=== PATIENT | female | born 1990 | race Caucasian/White ===

== ENCOUNTER → 2016-10-05 | Outpatient (CLI) | payer BC ==
--- NOTE | 2016-10-05 17:04 | US ---
EXAMINATION: Renal ultrasound HISTORY: Bicornuate uterus COMPARISON: None TECHNIQUE: Grayscale and color Doppler images obtained of the kidneys and bladder. FINDINGS: The right kidney measures 9.2 cm, and the left kidney measures 10.3 cm [id number] withou t evidence of hydronephrosis. The renal cortical echotexture is normal. Normal color Doppler flow is noted bilaterally. No renal masses or perinephric fluid collections. Urinary bladder appears normal . IMPRESSION: Unremarkable renal ultrasound.
== END ==
LOC: MW.US 14:22
PROVIDERS: ATTEND Obstetrics & Gynecology
DX: Q51.3 Bicornate uterus (principal)
CPT/HCPCS: 76770; 76770-26

== ENCOUNTER 2017-04-11 18:38 | Inpatient (IN) | payer BC ==
[2017-04-11] MEDS ORDERED: Sodium Chloride 0.9% 2.5 ML Syringe FLUSH PRN (21:16)
[2017-04-11] MEDS ORDERED: Sodium Chloride 0.9% 10 ML Syringe FLUSH PRN (21:16)
[2017-04-11] MEDS ORDERED: Carboprost Tromethamine 250 MCG/1 ML Amp IM PRN (21:16)
[2017-04-11] MEDS ORDERED: Misoprostol 200 MCG Tab PO PRN (21:16)
[2017-04-11] MEDS ORDERED: Nalbuphine 10 MG/1 ML Vial IVPUSH PRN (21:16)
[2017-04-11] MEDS ORDERED: Methylergonovine 0.2 MG/1 ML Amp IM PRN (21:16)
[2017-04-11] MEDS ORDERED: Water For Irrigation,Sterile 1,000 ML Container IRR PRN (21:16)
[2017-04-11] MEDS ORDERED: Lidocaine 1% 50 ML MDV INJECT PRN (21:16)
[2017-04-11] MEDS ORDERED: Butorphanol 1 MG/ML SDV IVPUSH PRN (21:16)
[2017-04-11] MEDS ORDERED: Oxytocin/0.9 % Sodium Chloride 30 UNIT/500 ML BAG IV ONE (21:17)
[2017-04-11] MEDS ORDERED: Lactated Ringers 1,000 ML IV SCH (21:30)
[2017-04-11] MEDS ORDERED: Simethicone 80 MG Tab.Chew PO PRN (22:50)
[2017-04-11] MEDS ORDERED: Lanolin 100% Cream 7 GM Tube TOP PRN (22:50)
[2017-04-11] MEDS ORDERED: Ibuprofen 800 MG Tab PO PRN (22:50)
[2017-04-11] MEDS ORDERED: oxyCODONE 5 MG Tab PO PRN (22:50)
[2017-04-11] MEDS ORDERED: Bisacodyl 10 MG Supp RECTAL PRN (22:50)
[2017-04-11] MEDS ORDERED: Docusate Sodium 100 MG Cap PO PRN (22:50)
[2017-04-11] MEDS ORDERED: Ibuprofen 400 MG Tab PO PRN (22:50)
[2017-04-11] MEDS ORDERED: Benzocaine/Menthol 20%-0.5% Spray 78 GM Cannister TOP PRN (22:50)
[2017-04-11] MEDS ORDERED: Acetaminophen 500 MG Tab PO PRN ×2 (22:50)
[2017-04-11] MEDS ORDERED: Witch Hazel Medicated Pads 40/Jar TOP PRN (22:50)
--- NOTE | 2017-04-12 01:28 | OR ---
SURGEON: Courtney Saunders M.D. DATE OF PROCEDURE: 04/11/2017 PREOPERATIVE DIAGNOSES: 1. A 40 and 1-week intrauterine . 2. Active labor. POSTOPERATIVE DIAGNOSES: 1. A 40 and 1-week intrauterine . 2. Active labor. PROCEDURE: 1. Spontaneous vaginal delivery. 2. Second-degree midline laceration repair. ESTIMATED BLOOD LOSS: 350 mL. ANESTHESIA: Local. COMPLICATIONS: None. FINDINGS: Viable male. score 9 at 1 minute, 9 at 5 minutes. Weight is pending. Spontaneous delivery, intact placenta, 3-vessel cord. DISPOSITION: Infant to nursery, mom in LDRP, stable. PROCEDURE IN DETAIL: Carly is a 26-year-old, G1, P0, at 40 and 2 weeks gestation. She presents this evening with regular contractions. With observation, she changed her cervix from 4 cm dilatation to 8 cm dilatation. Therefore, she was admitted and routine labs were drawn. Shortly thereafter, she had spontaneous rupture of membranes. Clear fluid was noted. She was group B beta strep negative. She quickly progressed to complete thereafter. I was called for delivery. Upon my arrival, the patient was having increasing urge to push. On examination, she was complete, 100% effaced, +2 station. She was placed in modified dorsal lithotomy position and was prepped and draped in the usual sterile manner. heart tones remained in the 110s-120s. She began pushing efforts, pushed adequately, and was able to deliver infant's head atraumatically spontaneously, followed by anterior shoulder, posterior shoulder, and remainder of the body without difficulty. The infant's oropharynx and nares were bulb suctioned and cord was clamped x2 and cut. was handed off to his mother with attending nursing staff at her side. Cord arterial, cord venous, cord blood sampling was obtained. Light suprapubic pressure was applied while the placenta was delivered spontaneously intact. Vigorous fundal uterine massage was then applied while 30 units of Pitocin was delivered in 500 mL of IV fluid. Upon inspection of the cervix, vaginal sidewalls, and perineum, there was a second- degree midline laceration noted. This region was prepped with approximately 10 mL of 1% lidocaine and repaired with 3-0 Vicryl in the usual fashion. The patient tolerated this repair well. Uterus remained firm. Hemostasis remained evident. Sponge count and needle count were correct. The patient remained in LDRP, in nursery. MOISES / RAFA /[id number]
--- NOTE | 2017-04-12 08:52 | PCM.PNPP ---
<Marisel Jang - Last Filed: 04/12/17 08:51> - General Info Date of Service: 04/12/17 Functional Status: Reports: Pain Controlled, Tolerating Diet, Ambulating, Urinating - Review of Systems General: Denies: Fever, Weakness, Fatigue Pulmonary: Denies: Shortness of Breath, Pleuritic Chest Pain, Cough Cardiovascular: Denies: Chest Pain, Palpitations, Dyspnea on Exertion Gastrointestinal: Denies: Abdominal Pain, Constipation Genitourinary: Denies: Dysuria Psychiatric: Reports: No Symptoms - General Info Date of Service: 04/12/17 - Patient Data Vital Signs - Most Recent: Last Vital Signs Temp 36.6 C 04/12/17 03:00 Pulse 84 04/12/17 03:00 Resp 16 04/12/17 03:00 BP 112/75 04/12/17 03:00 Pulse Ox Weight - Most Recent: 87.543 kg Lab Results - Last 24 Hours: Laboratory Results - last 24 hr 04/11/17 04/11/17 04/12/17 Range/Units 21:29 21:29 05:35 WBC 20.80 H (4.0-11.0) K/uL RBC 3.83 L (4.30-5.90) M/uL Hgb 11.2 L 10.8 L (12.0-16.0) g/dL Hct 32.4 L 32.4 L (36.0-46.0) % MCV 84.6 (80.0-98.0) fL MCH 29.2 (27.0-32.0) pg MCHC 34.6 (31.0-37.0) g/dL RDW Std Deviation 39.9 (28.0-62.0) fl RDW Coeff of Cici 13 (11.0-15.0) % Plt Count 246 (150-400) K/uL MPV 12.20 H (7.40-12.00) fL Nucleated RBC % 0.0 /100WBC Nucleated RBCs # 0 K/uL Blood Type A POSITIVE Antibody Screen NEGATIVE Med Orders - Current: Current Medications Acetaminophen (Tylenol Extra Strength) 500 mg PO Q4H PRN PRN Reason: Pain Acetaminophen (Tylenol Extra Strength) 1,000 mg PO Q4H PRN PRN Reason: Pain Benzocaine/Menthol (Dermoplast Pain Relief 20%-0.5% [place]) 78 gm TOP ASDIRECTED PRN PRN Reason: Perineal Comfort Measure Bisacodyl (Dulcolax) 10 mg RECTAL .ONCE PRN PRN Reason: Constipation Carboprost Tromethamine (Hemabate Ds) 250 mcg IM ASDIRECTED PRN PRN Reason: Post Hemorrhage Docusate Sodium (Colace) 100 mg PO BID PRN PRN Reason: Constipation Emollient Ointment (Lansinoh Hpa) 0 gm TOP ASDIRECTED PRN PRN Reason: Sore Nipples Lactated Ringer's (Ringers, Lactated) 1,000 mls @ 150 mls/hr IV ASDIRECTED KING Ibuprofen (Motrin) 400 mg PO Q4H PRN PRN Reason: Pain Ibuprofen (Motrin) 800 mg PO Q6H PRN PRN Reason: Pain Methylergonovine Maleate (Methergine) 0.2 mg IM ASDIRECTED PRN PRN Reason: Post Hemorrhage Oxycodone HCl (Oxycodone) 5 mg PO Q2H PRN PRN Reason: Pain Simethicone (Simethicone) 80 mg PO Q4H PRN PRN Reason: Gas Sodium Chloride (Saline Flush) 10 ml FLUSH ASDIRECTED PRN PRN Reason: Keep Vein Open Sodium Chloride (Saline Flush) 2.5 ml FLUSH ASDIRECTED PRN PRN Reason: Keep Vein Open Witch Alexandrea (Tucks) 1 pad TOP ASDIRECTED PRN PRN Reason: comfort care Discontinued Medications Butorphanol Tartrate (Stadol) 1 mg IVPUSH Q1H PRN PRN Reason: Pain Oxytocin/Sodium Chloride (Oxytocin 30 Unit/500 Ml-Ns) 30 unit in 500 mls @ 500 mls/hr IV ONETIME ONE Stop: 04/11/17 22:16 Last Admin: 04/11/17 22:27 Dose: 500 mls/hr Lidocaine HCl (Xylocaine 1%) 50 ml INJECT .ONCE PRN PRN Reason: Laceration repair Last Admin: 04/11/17 22:28 Dose: 50 ml Misoprostol (Cytotec) 200 mcg PO .ONCE PRN PRN Reason: Post Hemorrhage Nalbuphine HCl (Nubain) 10 mg IVPUSH Q1H PRN PRN Reason: Pain (severe 7-10) Sterile Water (Sterile Water For Irrigation) 1,000 ml IRR ASDIRECTED PRN PRN Reason: delivery Last Admin: 04/11/17 22:00 Dose: 1,000 ml - Interaction Disposition, : [place] in Room with Family Interaction: Holding Infant Infant Feeding: Attempted ; Nursed Fair/Poor Support Person: - Exam General: Alert, Oriented Lungs: Clear to Auscultation Cardiovascular: Regular Rate GI/Abdominal Exam: Normal Bowel Sounds, Soft, Non-Tender, No Organomegaly, No Distention, No Abnormal Bruit, No Mass, Pelvis Stable Extremities: Normal Inspection, Normal Range of Motion, Non-Tender, Normal Capillary Refill, Pedal Edema (trace) Psy/Mental Status: Alert, Normal Affect, Normal Mood - Problem List & Annotations (1) Vaginal delivery SNOMED Code(s): 191082271 Code(s): O80 - ENCOUNTER FOR FULL-TERM UNCOMPLICATED DELIVERY Status: Acute Current Visit: Yes - Problem List Review Problem List Initiated/Reviewed/Updated: Yes - Assessment Assessment:: PPD#1 from . Minimal pain and lochia. Work on breast feeding today. Aim for discharge tomorrow morning. - Plan Plan:: Continue routine post cares. Anticipate discharge home tomorrow. <Courtney Saunders - Last Filed: 04/12/17 09:08> - Patient Data Vital Signs - Most Recent: Last Vital Signs Temp 36.4 C 04/12/17 08:00 Pulse 85 04/12/17 08:00 Resp 16 04/12/17 08:00 BP 120/82 04/12/17 08:00 Pulse Ox 99 04/12/17 08:00 Lab Results - Last 24 Hours: Laboratory Results - last 24 hr 04/11/17 04/11/17 04/12/17 Range/Units 21:29 21:29 05:35 WBC 20.80 H (4.0-11.0) K/uL RBC 3.83 L (4.30-5.90) M/uL Hgb 11.2 L 10.8 L (12.0-16.0) g/dL Hct 32.4 L 32.4 L (36.0-46.0) % MCV 84.6 (80.0-98.0) fL MCH 29.2 (27.0-32.0) pg MCHC 34.6 (31.0-37.0) g/dL RDW Std Deviation 39.9 (28.0-62.0) fl RDW Coeff of Cici 13 (11.0-15.0) % Plt Count 246 (150-400) K/uL MPV 12.20 H (7.40-12.00) fL Nucleated RBC % 0.0 /100WBC Nucleated RBCs # 0 K/uL Blood Type A POSITIVE Antibody Screen NEGATIVE Med Orders - Current: Current Medications Acetaminophen (Tylenol Extra Strength) 500 mg PO Q4H PRN PRN Reason: Pain Acetaminophen (Tylenol Extra Strength) 1,000 mg PO Q4H PRN PRN Reason: Pain Benzocaine/Menthol (Dermoplast Pain Relief 20%-0.5% [place]) 78 gm TOP ASDIRECTED PRN PRN Reason: Perineal Comfort Measure Bisacodyl (Dulcolax) 10 mg RECTAL .ONCE PRN PRN Reason: Constipation Carboprost Tromethamine (Hemabate Ds) 250 mcg IM ASDIRECTED PRN PRN Reason: Post Hemorrhage Docusate Sodium (Colace) 100 mg PO BID PRN PRN Reason: Constipation Emollient Ointment (Lansinoh Hpa) 0 gm TOP ASDIRECTED PRN PRN Reason: Sore Nipples Lactated Ringer's (Ringers, Lactated) 1,000 mls @ 150 mls/hr IV ASDIRECTED KING Ibuprofen (Motrin) 400 mg PO Q4H PRN PRN Reason: Pain Ibuprofen (Motrin) 800 mg PO Q6H PRN PRN Reason: Pain Methylergonovine Maleate (Methergine) 0.2 mg IM ASDIRECTED PRN PRN Reason: Post Hemorrhage Oxycodone HCl (Oxycodone) 5 mg PO Q2H PRN PRN Reason: Pain Simethicone (Simethicone) 80 mg PO Q4H PRN PRN Reason: Gas Sodium Chloride (Saline Flush) 10 ml FLUSH ASDIRECTED PRN PRN Reason: Keep Vein Open Sodium Chloride (Saline Flush) 2.5 ml FLUSH ASDIRECTED PRN PRN Reason: Keep Vein Open Witch Alexandrea (Tucks) 1 pad TOP ASDIRECTED PRN PRN Reason: comfort care Discontinued Medications Butorphanol Tartrate (Stadol) 1 mg IVPUSH Q1H PRN PRN Reason: Pain Oxytocin/Sodium Chloride (Oxytocin 30 Unit/500 Ml-Ns) 30 unit in 500 mls @ 500 mls/hr IV ONETIME ONE Stop: 04/11/17 22:16 Last Admin: 04/11/17 22:27 Dose: 500 mls/hr Lidocaine HCl (Xylocaine 1%) 50 ml INJECT .ONCE PRN PRN Reason: Laceration repair Last Admin: 04/11/17 22:28 Dose: 50 ml Misoprostol (Cytotec) 200 mcg PO .ONCE PRN PRN Reason: Post Hemorrhage Nalbuphine HCl (Nubain) 10 mg IVPUSH Q1H PRN PRN Reason: Pain (severe 7-10) Sterile Water (Sterile Water For Irrigation) 1,000 ml IRR ASDIRECTED PRN PRN Reason: delivery Last Admin: 04/11/17 22:00 Dose: 1,000 ml - Problem List Review Problem List Initiated/Reviewed/Updated: Yes - My Orders Last 24 Hours: My Active Orders 04/11/17 21:16 Patient Status [ADT] Routine Heart Tones [RC] CONTINUOUS Non Stress Test [RC] PER UNIT ROUTINE May Shower [RC] ASDIRECTED Notify Provider [RC] PRN Up ad Belen [RC] ASDIRECTED Vaginal Exam [RC] PRN Vital Signs [RC] PER UNIT ROUTINE Carboprost Tromethamine [Hemabate DS] 250 mcg IM ASDIRECTED PRN Methylergonovine [Methergine] 0.2 mg IM ASDIRECTED PRN Sodium Chloride 0.9% [Saline Flush] 10 ml FLUSH ASDIRECTED PRN Sodium Chloride 0.9% [Saline Flush] 2.5 ml FLUSH ASDIRECTED PRN Peripheral IV Insertion Adult [OM.PC] Routine 04/11/17 21:30 Lactated Ringers [Ringers, Lactated] 1,000 ml IV ASDIRECTED 04/11/17 22:50 Patient Status [ADT] Routine May Shower [RC] ASDIRECTED Up ad Belen [RC] ASDIRECTED Vital Signs [RC] PER UNIT ROUTINE Acetaminophen [Tylenol Extra Strength] 1,000 mg PO Q4H PRN Acetaminophen [Tylenol Extra Strength] 500 mg PO Q4H PRN Benzocaine/Menthol [Dermoplast Pain Relief 20%-0.5% [place]] 78 gm TOP ASDIRECTED PRN Bisacodyl [Dulcolax] 10 mg RECTAL .ONCE PRN Docusate Sodium [Colace] 100 mg PO BID PRN Ibuprofen [Motrin] 400 mg PO Q4H PRN Ibuprofen [Motrin] 800 mg PO Q6H PRN Lanolin [Lansinoh HPA] See Dose Instructions TOP ASDIRECTED PRN Simethicone 80 mg PO Q4H PRN Witch Alexandrea [Tucks] 1 pad TOP ASDIRECTED PRN oxyCODONE 5 mg PO Q2H PRN Assess Lochia [WOMSER] Per Unit Routine Assess Uterine Involution [WOMSER] Per Unit Routine Breast Pump [WOMSER] Per Unit Routine Ice Therapy [OM.PC] Per Unit Routine Perineal Care [OM.PC] Per Unit Routine Peripheral IV Discontinue [OM.PC] Routine Sitz Bath [OM.PC] Per Unit Routine 04/11/17 Dinner Regular Diet [DIET] - Plan Plan:: Patient seen and examined--agree with above
--- NOTE | 2017-04-13 07:08 | PCM.PNPP ---
- General Info Date of Service: 04/13/17 Functional Status: Reports: Pain Controlled, Tolerating Diet, Ambulating, Urinating - Review of Systems General: Denies: Fever, Fatigue, Chills HEENT: Denies: Headaches Pulmonary: Denies: Shortness of Breath, Pleuritic Chest Pain Cardiovascular: Denies: Chest Pain, Palpitations, Dyspnea on Exertion Gastrointestinal: Denies: Abdominal Pain Genitourinary: Denies: Dysuria, Incontinence Psychiatric: Denies: Confusion, Mood Lability, Anxiety - General Info Date of Service: 04/13/17 - Patient Data Vital Signs - Most Recent: Last Vital Signs Temp 36.4 C 04/13/17 04:00 Pulse 97 04/13/17 04:00 Resp 16 04/13/17 04:00 BP 107/66 04/13/17 04:00 Pulse Ox 97 04/13/17 04:00 Weight - Most Recent: 193 lb Med Orders - Current: Current Medications Acetaminophen (Tylenol Extra Strength) 500 mg PO Q4H PRN PRN Reason: Pain Acetaminophen (Tylenol Extra Strength) 1,000 mg PO Q4H PRN PRN Reason: Pain Benzocaine/Menthol (Dermoplast Pain Relief 20%-0.5% [place]) 78 gm TOP ASDIRECTED PRN PRN Reason: Perineal Comfort Measure Bisacodyl (Dulcolax) 10 mg RECTAL .ONCE PRN PRN Reason: Constipation Carboprost Tromethamine (Hemabate Ds) 250 mcg IM ASDIRECTED PRN PRN Reason: Post Hemorrhage Docusate Sodium (Colace) 100 mg PO BID PRN PRN Reason: Constipation Emollient Ointment (Lansinoh Hpa) 0 gm TOP ASDIRECTED PRN PRN Reason: Sore Nipples Lactated Ringer's (Ringers, Lactated) 1,000 mls @ 150 mls/hr IV ASDIRECTED KING Ibuprofen (Motrin) 400 mg PO Q4H PRN PRN Reason: Pain Ibuprofen (Motrin) 800 mg PO Q6H PRN PRN Reason: Pain Methylergonovine Maleate (Methergine) 0.2 mg IM ASDIRECTED PRN PRN Reason: Post Hemorrhage Oxycodone HCl (Oxycodone) 5 mg PO Q2H PRN PRN Reason: Pain Simethicone (Simethicone) 80 mg PO Q4H PRN PRN Reason: Gas Sodium Chloride (Saline Flush) 10 ml FLUSH ASDIRECTED PRN PRN Reason: Keep Vein Open Sodium Chloride (Saline Flush) 2.5 ml FLUSH ASDIRECTED PRN PRN Reason: Keep Vein Open Witch Alexandrea (Tucks) 1 pad TOP ASDIRECTED PRN PRN Reason: comfort care Discontinued Medications Butorphanol Tartrate (Stadol) 1 mg IVPUSH Q1H PRN PRN Reason: Pain Oxytocin/Sodium Chloride (Oxytocin 30 Unit/500 Ml-Ns) 30 unit in 500 mls @ 500 mls/hr IV ONETIME ONE Stop: 04/11/17 22:16 Last Admin: 04/11/17 22:27 Dose: 500 mls/hr Lidocaine HCl (Xylocaine 1%) 50 ml INJECT .ONCE PRN PRN Reason: Laceration repair Last Admin: 04/11/17 22:28 Dose: 50 ml Misoprostol (Cytotec) 200 mcg PO .ONCE PRN PRN Reason: Post Hemorrhage Nalbuphine HCl (Nubain) 10 mg IVPUSH Q1H PRN PRN Reason: Pain (severe 7-10) Sterile Water (Sterile Water For Irrigation) 1,000 ml IRR ASDIRECTED PRN PRN Reason: delivery Last Admin: 04/11/17 22:00 Dose: 1,000 ml - Interaction Infant Disposition, : [place] in Room with Family Infant Interaction: Holding Infant Infant Feeding: Breastfed ; Nursed Well, Continues to Breastfeed Support Person: - Recovery Exam Fundal Tone: Firm Fundal Level: At Umbilicus Fundal Placement: Midline Lochia Amount: Small Lochia Color: Rubra/Red Perineum Description: Other (see below) Other Perinuem Description: 2nd degree tear,repaired Episiotomy/Laceration: Approximated Bladder Status: Voiding Urinary Elimination: Voided - Exam General: Alert, Oriented Lungs: Clear to Auscultation, Normal Respiratory Effort Cardiovascular: Regular Rate, Regular Rhythm GI/Abdominal Exam: Soft Extremities: Non-Tender, Pedal Edema Psy/Mental Status: Alert, Normal Affect, Normal Mood - Problem List & Annotations (1) Vaginal delivery SNOMED Code(s): 613041487 Code(s): O80 - ENCOUNTER FOR FULL-TERM UNCOMPLICATED DELIVERY Status: Acute Current Visit: Yes - Problem List Review Problem List Initiated/Reviewed/Updated: Yes - Assessment Assessment:: PPD#2 from . Stable and afebrile. Breast feeding better - Plan Plan:: Discharge instructions reviewed Nothing in the vagina for 6 weeks Continue PNV OTC pain meds for pain PRN Bleeding and infection precautions reviewed Follow up in the clinic in 6 week
[2017-04-13 08:26] VITALS: BP 119/70
== END 2017-04-13 11:30 | disposition home or self-care (01) | DRG 560 ==
LOC: MW.OBCHECK 18:38 → MW.OB 18:44 → MW.OBCHECK 22:19 → OBSVTOIN 22:20 → MW.OB 04-12 03:00
PROVIDERS: ADMIT Obstetrics & Gynecology; ATTEND Obstetrics & Gynecology
PROC: 10E0XZZ Delivery of Products of Conception, External Approach (ICD-10-PCS; principal; 2017-04-11)
PROC: 0KQM0ZZ Repair Perineum Muscle, Open Approach (ICD-10-PCS; 2017-04-11)
DX: O40.3XX0 Polyhydramnios, third trimester, not applicable or unspecified (principal); O70.1 Second degree perineal laceration during delivery; Z3A.40 40 weeks gestation of pregnancy; Z37.0 Single live birth
CPT/HCPCS: 36415; 59025; 59409; 85014; 85018; 85027; 86850; 86900; 86901; A9270-GY; J2590

== ENCOUNTER 2020-05-29 01:35 | Inpatient (IN) | payer BC ==
[2020-05-29] MEDS ORDERED: Misoprostol 200 MCG Tab PO PRN (01:56)
[2020-05-29] MEDS ORDERED: Lidocaine 1% 50 ML MDV INJECT PRN (01:56)
[2020-05-29] MEDS ORDERED: Nalbuphine 10 MG/1 ML Vial IVPUSH PRN (01:56)
[2020-05-29] MEDS ORDERED: Sodium Chloride 0.9% 10 ML Syringe FLUSH PRN (01:56)
[2020-05-29] MEDS ORDERED: Water For Irrigation,Sterile 1,000 ML Container IRR PRN (01:56)
[2020-05-29] MEDS ORDERED: Sodium Chloride 0.9% 10 ML SDV IV PRN (01:56)
[2020-05-29] MEDS ORDERED: Sodium Chloride 0.9% 2.5 ML Syringe FLUSH PRN (01:56)
[2020-05-29] MEDS ORDERED: Tranexamic Acid 1,000 MG in Sodium Chloride 0.9% 100 ML IV PRN (01:56)
[2020-05-29] MEDS ORDERED: Methylergonovine 0.2 MG/1 ML Amp IM PRN (01:56)
[2020-05-29] MEDS ORDERED: Carboprost Tromethamine 250 MCG/1 ML Amp IM PRN (01:56)
[2020-05-29] MEDS ORDERED: Ondansetron 4 MG/2 ML SDV IVPUSH PRN (01:56)
[2020-05-29] MEDS ORDERED: Butorphanol 1 MG/ML SDV IVPUSH PRN (01:56)
[2020-05-29] MEDS ORDERED: Oxytocin/0.9 % Sodium Chloride 30 UNIT/500 ML BAG IV SCH (02:00)
[2020-05-29] MEDS ORDERED: Lactated Ringers 1,000 ML IV SCH (02:00)
[2020-05-29] MEDS ORDERED: Ibuprofen 800 MG Tab PO PRN (02:35)
[2020-05-29] MEDS ORDERED: Docusate Sodium 100 MG Cap PO PRN (02:35)
[2020-05-29] MEDS ORDERED: Witch Hazel Medicated Pads 40/Jar TOP PRN (02:35)
[2020-05-29] MEDS ORDERED: Bisacodyl 10 MG Supp RECTAL PRN (02:35)
[2020-05-29] MEDS ORDERED: Lanolin 100% Cream 7 GM Tube TOP PRN (02:35)
[2020-05-29] MEDS ORDERED: Ibuprofen 400 MG Tab PO PRN (02:35)
[2020-05-29] MEDS ORDERED: Benzocaine/Menthol 20%-0.5% Spray 78 GM Cannister TOP PRN (02:35)
[2020-05-29] MEDS ORDERED: oxyCODONE 5 MG Tab PO PRN (02:35)
[2020-05-29] MEDS ORDERED: Acetaminophen 500 MG Tab PO PRN ×2 (02:35)
--- NOTE | 2020-05-29 15:53 | PCM.DEL ---
L & D Note - General Info Date of Service: 05/29/20 - Delivery Note Labor: Spontaneous, Augmented by ARM Delivery Outcome: Livebirth Infant Delivery Method: Spontaneous Vaginal Delivery-Single Presentation: Right Occiput Anterior (THUY) Nuchal Cord: None Anesthesia Type: Local Anesthetic: Lidocaine (Xylocaine) 1% Plain Local Anesthetic Volume: 5cc Amniotic Fluid Description: Clear Episiotomy Type: None Laceration: 2nd Degree Suture type: Vicryl Suture size: 3-0 Placenta: Intact, Spontaneous Cord: 3 Vessels Estimated Blood Loss: 200 Resuscitation Needed: No : Bulb Syringe Provider: Loly Fernandez Score 1 min: 8 Score 5 min: 9 Second Stage Interventions: Reports: Pushing Effectively - General Info Date of Service: 05/29/20 - Patient Data Vitals - Most Recent: Last Vital Signs Temp 36.4 C 05/29/20 08:00 Pulse 81 05/29/20 08:00 Resp 17 05/29/20 08:00 BP 132/86 05/29/20 08:00 Pulse Ox 97 05/29/20 08:00 Weight - Most Recent: 203 lb Lab Results Last 24 Hours: Laboratory Results - last 24 hr 05/29/20 05/29/20 05/29/20 Range/Units 01:50 02:02 02:02 WBC 12.64 H (4.0-11.0) K/uL RBC 3.72 L (4.30-5.90) M/uL Hgb 10.2 L (12.0-16.0) g/dL Hct 31.3 L (36.0-46.0) % MCV 84.1 (80.0-98.0) fL MCH 27.4 (27.0-32.0) pg MCHC 32.6 (31.0-37.0) g/dL RDW Std Deviation 43.1 (28.0-62.0) fl RDW Coeff of Cici 14 (11.0-15.0) % Plt Count 238 (150-400) K/uL MPV 11.70 (7.40-12.00) fL Nucleated RBC % 0.0 /100WBC Nucleated RBCs # 0 K/uL Cord ABG pH (7.18-7.38) Cord ABG Base Excess (-10--2) Cord VBG pH (7.25-7.45) Cord VBG Base Excess (-10--2) SARS-CoV-2 RNA (LUZ) NEGATIVE (NEGATIVE) Blood Type A POSITIVE Antibody Screen NEGATIVE 05/29/20 Range/Units 02:14 WBC (4.0-11.0) K/uL RBC (4.30-5.90) M/uL Hgb (12.0-16.0) g/dL Hct (36.0-46.0) % MCV (80.0-98.0) fL MCH (27.0-32.0) pg MCHC (31.0-37.0) g/dL RDW Std Deviation (28.0-62.0) fl RDW Coeff of Cici (11.0-15.0) % Plt Count (150-400) K/uL MPV (7.40-12.00) fL Nucleated RBC % /100WBC Nucleated RBCs # K/uL Cord ABG pH 7.300 (7.18-7.38) Cord ABG Base Excess -4 (-10--2) Cord VBG pH 7.398 (7.25-7.45) Cord VBG Base Excess -5 (-10--2) SARS-CoV-2 RNA (LUZ) (NEGATIVE) Blood Type Antibody Screen Med Orders - Current: Current Medications Acetaminophen (Tylenol Extra Strength) 500 mg PO Q4H PRN PRN Reason: Pain Acetaminophen (Tylenol Extra Strength) 1,000 mg PO Q4H PRN PRN Reason: Pain Benzocaine/Menthol (Dermoplast Pain Relief 20%-0.5% [place]) 78 gm TOP ASDIRECTED PRN PRN Reason: Perineal Comfort Measure Last Admin: 05/29/20 04:31 Dose: 1 applic Documented by: Bisacodyl (Dulcolax) 10 mg RECTAL ONETIME PRN PRN Reason: Constipation Butorphanol Tartrate (Stadol) 1 mg IVPUSH Q1H PRN PRN Reason: Pain Carboprost Tromethamine (Hemabate Ds) 250 mcg IM ASDIRECTED PRN PRN Reason: Post Hemorrhage Docusate Sodium (Colace) 100 mg PO BID PRN PRN Reason: Constipation Emollient Ointment (Lansinoh Hpa) 0 gm TOP ASDIRECTED PRN PRN Reason: Sore Nipples Oxytocin/Sodium Chloride (Oxytocin 30 Unit/500 Ml-Ns) 30 unit in 500 mls @ 999 mls/hr IV TITRATE KING Last Admin: 05/29/20 02:30 Dose: 999 mls/hr Documented by: Tranexamic Acid 1,000 mg/ (Sodium Chloride) 110 mls @ 660 mls/hr IV ONETIME PRN PRN Reason: Bleeding Lactated Ringer's (Ringers, Lactated) 1,000 mls @ 150 mls/hr IV ASDIRECTED KING Ibuprofen (Motrin) 400 mg PO Q4H PRN PRN Reason: Pain Ibuprofen (Motrin) 800 mg PO Q6H PRN PRN Reason: Pain Lidocaine HCl (Xylocaine 1%) 50 ml INJECT ONETIME PRN PRN Reason: Laceration repair Last Admin: 05/29/20 02:30 Dose: 50 ml Documented by: Methylergonovine Maleate (Methergine) 0.2 mg IM ASDIRECTED PRN PRN Reason: Post Hemorrhage Misoprostol (Cytotec) 200 mcg PO ONETIME PRN PRN Reason: Post Hemorrhage Nalbuphine HCl (Nubain) 10 mg IVPUSH Q1H PRN PRN Reason: Pain (severe 7-10) Ondansetron HCl (Zofran) 4 mg IVPUSH Q4H PRN PRN Reason: Nausea/Vomiting Oxycodone HCl (Oxycodone) 5 mg PO Q2H PRN PRN Reason: Pain Sodium Chloride (Saline Flush) 10 ml FLUSH ASDIRECTED PRN PRN Reason: Keep Vein Open Sodium Chloride (Saline Flush) 2.5 ml FLUSH ASDIRECTED PRN PRN Reason: Keep Vein Open Sodium Chloride (Normal Saline) 10 ml IV ASDIRECTED PRN PRN Reason: IV Use Sterile Water (Sterile Water For Irrigation) 1,000 ml IRR ASDIRECTED PRN PRN Reason: delivery Witch Alexandrea (Tucks) 1 pad TOP ASDIRECTED PRN PRN Reason: comfort care Last Admin: 05/29/20 04:32 Dose: 1 applic Documented by: - Problem List Review Problem List Initiated/Reviewed/Updated: Yes - My Orders Last 24 Hours: My Active Orders 05/29/20 01:56 May Shower [RC] ASDIRECTED Up ad Belen [RC] ASDIRECTED Vital Signs [RC] PER UNIT ROUTINE Butorphanol [Stadol] 1 mg IVPUSH Q1H PRN Carboprost Tromethamine [Hemabate DS] 250 mcg IM ASDIRECTED PRN Lidocaine 1% [Xylocaine 1%] 50 ml INJECT ONETIME PRN Methylergonovine [Methergine] 0.2 mg IM ASDIRECTED PRN Nalbuphine [Nubain] 10 mg IVPUSH Q1H PRN Ondansetron [Zofran] 4 mg IVPUSH Q4H PRN Sodium Chloride 0.9% [Normal Saline] 10 ml IV ASDIRECTED PRN Sodium Chloride 0.9% [Saline Flush] 10 ml FLUSH ASDIRECTED PRN Sodium Chloride 0.9% [Saline Flush] 2.5 ml FLUSH ASDIRECTED PRN Tranexamic Acid [Cyklokapron] 1,000 mg Sodium Chloride 0.9% [Normal Saline] 100 ml IV ONETIME Water For Irrigation,Sterile [Sterile Water for Irrigation] 1,000 ml IRR ASDIRECTED PRN miSOPROStoL [Cytotec] 200 mcg PO ONETIME PRN Scalp Electrode [WOMSER] Per Unit Routine Peripheral IV Insertion Adult [OM.PC] Routine Resuscitation Status Routine 05/29/20 02:00 Lactated Ringers [Ringers, Lactated] 1,000 ml IV ASDIRECTED Oxytocin/0.9 % Sodium Chloride [Oxytocin 30 Unit/500 ML-NS] 30 unit in 500 ml IV TITRATE 05/29/20 02:02 RPR (SYPHILIS SERO) W/ RFLX [REF] Routine 05/29/20 02:35 Patient Status [ADT] Routine Up ad Belen [RC] ASDIRECTED Vital Signs [RC] PER UNIT ROUTINE Acetaminophen [Tylenol Extra Strength] 1,000 mg PO Q4H PRN Acetaminophen [Tylenol Extra Strength] 500 mg PO Q4H PRN Benzocaine/Menthol [Dermoplast Pain Relief 20%-0.5% [place]] 78 gm TOP ASDIRECTED PRN Docusate Sodium [Colace] 100 mg PO BID PRN Ibuprofen [Motrin] 400 mg PO Q4H PRN Ibuprofen [Motrin] 800 mg PO Q6H PRN Lanolin [Lansinoh HPA] See Dose Instructions TOP ASDIRECTED PRN bisacodyL [Dulcolax] 10 mg RECTAL ONETIME PRN oxyCODONE 5 mg PO Q2H PRN ezequiel Shaw [Tucks] 1 pad TOP ASDIRECTED PRN Assess Lochia [WOMSER] Per Unit Routine Assess Uterine Involution [WOMSER] Per Unit Routine Peripheral IV Discontinue [OM.PC] Routine 05/29/20 02:36 Ice Therapy [OM.PC] Per Unit Routine Perineal Care [OM.PC] Per Unit Routine 05/29/20 02:37 Cooling Warming Measures [RC] ASDIRECTED 05/29/20 Breakfast Regular Diet [DIET] 05/30/20 05:11 HEMOGLOBIN/HEMATOCRIT,HH [HEME] Timed - Assessment Assessment:: 29yo @39w6d presented in active labor. S/p uncomplicated with 2nd deg laceration. - Plan Plan:: Routine care.
--- NOTE | 2020-05-30 08:42 | PCM.PNPP ---
- General Info Date of Service: 05/30/20 Functional Status: Reports: Pain Controlled, Tolerating Diet, Ambulating, Urinating - Review of Systems General: Reports: No Symptoms HEENT: Reports: No Symptoms Pulmonary: Reports: No Symptoms Cardiovascular: Reports: No Symptoms Gastrointestinal: Reports: No Symptoms Genitourinary: Reports: No Symptoms Musculoskeletal: Reports: No Symptoms Skin: Reports: No Symptoms Neurological: Reports: No Symptoms Psychiatric: Reports: No Symptoms - Patient Data Vital Signs - Most Recent: Last Vital Signs Temp 37.2 C 05/30/20 08:00 Pulse 80 05/30/20 08:00 Resp 16 05/30/20 08:00 BP 127/77 05/30/20 08:00 Pulse Ox 99 05/30/20 08:00 Weight - Most Recent: 92.079 kg Lab Results - Last 24 Hours: Laboratory Results - last 24 hr 05/30/20 Range/Units 05:48 Hgb 9.7 L (12.0-16.0) g/dL Hct 30.1 L (36.0-46.0) % Med Orders - Current: Current Medications Acetaminophen (Tylenol Extra Strength) 500 mg PO Q4H PRN PRN Reason: Pain Acetaminophen (Tylenol Extra Strength) 1,000 mg PO Q4H PRN PRN Reason: Pain Benzocaine/Menthol (Dermoplast Pain Relief 20%-0.5% [place]) 78 gm TOP ASDIRECTED PRN PRN Reason: Perineal Comfort Measure Last Admin: 05/29/20 04:31 Dose: 1 applic Documented by: Bisacodyl (Dulcolax) 10 mg RECTAL ONETIME PRN PRN Reason: Constipation Butorphanol Tartrate (Stadol) 1 mg IVPUSH Q1H PRN PRN Reason: Pain Carboprost Tromethamine (Hemabate Ds) 250 mcg IM ASDIRECTED PRN PRN Reason: Post Hemorrhage Docusate Sodium (Colace) 100 mg PO BID PRN PRN Reason: Constipation Emollient Ointment (Lansinoh Hpa) 0 gm TOP ASDIRECTED PRN PRN Reason: Sore Nipples Oxytocin/Sodium Chloride (Oxytocin 30 Unit/500 Ml-Ns) 30 unit in 500 mls @ 999 mls/hr IV TITRATE KING Last Admin: 05/29/20 02:30 Dose: 999 mls/hr Documented by: Tranexamic Acid 1,000 mg/ (Sodium Chloride) 110 mls @ 660 mls/hr IV ONETIME PRN PRN Reason: Bleeding Lactated Ringer's (Ringers, Lactated) 1,000 mls @ 150 mls/hr IV ASDIRECTED KING Ibuprofen (Motrin) 400 mg PO Q4H PRN PRN Reason: Pain Ibuprofen (Motrin) 800 mg PO Q6H PRN PRN Reason: Pain Lidocaine HCl (Xylocaine 1%) 50 ml INJECT ONETIME PRN PRN Reason: Laceration repair Last Admin: 05/29/20 02:30 Dose: 50 ml Documented by: Methylergonovine Maleate (Methergine) 0.2 mg IM ASDIRECTED PRN PRN Reason: Post Hemorrhage Misoprostol (Cytotec) 200 mcg PO ONETIME PRN PRN Reason: Post Hemorrhage Nalbuphine HCl (Nubain) 10 mg IVPUSH Q1H PRN PRN Reason: Pain (severe 7-10) Ondansetron HCl (Zofran) 4 mg IVPUSH Q4H PRN PRN Reason: Nausea/Vomiting Oxycodone HCl (Oxycodone) 5 mg PO Q2H PRN PRN Reason: Pain Sodium Chloride (Saline Flush) 10 ml FLUSH ASDIRECTED PRN PRN Reason: Keep Vein Open Sodium Chloride (Saline Flush) 2.5 ml FLUSH ASDIRECTED PRN PRN Reason: Keep Vein Open Sodium Chloride (Normal Saline) 10 ml IV ASDIRECTED PRN PRN Reason: IV Use Sterile Water (Sterile Water For Irrigation) 1,000 ml IRR ASDIRECTED PRN PRN Reason: delivery Witch Alexandrea (Tucks) 1 pad TOP ASDIRECTED PRN PRN Reason: comfort care Last Admin: 05/29/20 04:32 Dose: 1 applic Documented by: - Infant Interaction Disposition, : in Room with Family Interaction: Holding Feeding: Breastfed ; Nursed Well Support Person: - Recovery Exam Fundal Tone: Firm Fundal Level: At Umbilicus Fundal Placement: Midline Lochia Amount: Scant Lochia Color: Rubra/Red Perineum Description: Intact, Minimal Bruising/Swelling, Other (see below) Other Perinuem Description: 2nd degree laceration Episiotomy/Laceration: Approximated Bladder Status: Voiding - Exam General: Alert, Oriented Neck: Supple Lungs: Normal Respiratory Effort GI/Abdominal Exam: Soft, Non-Tender, No Mass Extremities: Normal Inspection, Non-Tender, No Pedal Edema Skin: Warm, Dry, Intact Neurological: No New Focal Deficit Psy/Mental Status: Alert, Normal Affect, Normal Mood - Problem List Review Problem List Initiated/Reviewed/Updated: Yes - Assessment Assessment:: PPD #1 after , stable minimal lochia, well. Would like to be discharged today. - Plan Plan:: Discharge instructions reviewed. Discussed iron for anemia, she prefers PNV and food sources of iron.
--- NOTE | 2020-05-30 10:42 | OR ---
SURGEON: Anthony Headley MD DATE OF PROCEDURE: 05/29/2020 PRIMARY SURGEON: Anthony Headley MD INDICATION FOR PROCEDURE: A 29-year-old G2, P1-0-0-1, at 39 weeks and 6 days, presenting in labor. The patient called reporting she has been sophie for the past 3 to 4 hours and has become increasingly stronger and closer together, now every 2 to 3 minutes apart. Upon arrival to &D, she was 8/90/0 with intact membranes. She has a history of bicornuate uterus. The has been uncomplicated. She is GBS negative. She declined an epidural. AROM was performed for augmentation of labor. She then quickly progressed to fully dilated and began pushing with contractions. PREOPERATIVE DIAGNOSIS: [place] intrauterine at 39 weeks and 6 days. POSTOPERATIVE DIAGNOSIS: [place] intrauterine at 39 weeks and 6 days. PROCEDURES PERFORMED: 1. Normal spontaneous vaginal delivery. 2. Repair of second-degree laceration. ANESTHESIA: Local anesthesia. FINDINGS: A viable female , scores of 8 and 9, weight was 6 lbs 14oz. ESTIMATED BLOOD LOSS: 200 mL. DESCRIPTION OF THE PROCEDURE: The patient pushed with contractions for about 10 minutes. The head delivered in the occiput anterior position over an intact perineum, restituted ROT. The anterior shoulder delivered easily. No nuchal cord was noted. The posterior shoulder and body were delivered easily. The baby was placed on the maternal chest and evaluated by waiting nursery staff. The baby was pink, crying vigorously, and moving all extremities right after delivery. The umbilical cord was clamped and cut after 60 seconds and no longer pulsating. Umbilical cord gases were obtained. The placenta was removed with gentle traction on the umbilical cord. It was examined and found to be intact with a 3-vessel cord. The perineum was examined, and a second-degree laceration was noted. 10cc of Lidocaine 1% with epinephrine was injected for local anesthesia. 3-0 Vicryl was used to repair the laceration in usual fashion. Hemostasis was confirmed after the repair. Fundal massage was performed, and the uterus was firm and below the umbilicus, and the bleeding was light. She tolerated the procedure well and was given care instructions. CH[place] / RAFA /[id number] [facility]
[2020-05-31 20:21] VITALS: BP 123/92; PULSE 97
== END 2020-05-31 22:35 | disposition home or self-care (01) | DRG 560 ==
LOC: MW.OBCHECK 01:35 → MW.OB 01:40 → MW.OBCHECK 02:00 → OBSVTOIN 02:14 → MW.OB 05:25
PROVIDERS: ADMIT Obstetrics & Gynecology; ATTEND Obstetrics & Gynecology
PROC: 10E0XZZ Delivery of Products of Conception, External Approach (ICD-10-PCS; principal; 2020-05-29)
PROC: 0HQ9XZZ Repair Perineum Skin, External Approach (ICD-10-PCS; 2020-05-29)
PROC: 10907ZC Drainage of Amniotic Fluid, Therapeutic from Products of Conception, Via Natural or Artificial Opening (ICD-10-PCS; 2020-05-29)
DX: O22.13 Genital varices in pregnancy, third trimester (principal); Z20.828 Contact with and (suspected) exposure to other viral communicable diseases; Z37.0 Single live birth; Z3A.39 39 weeks gestation of pregnancy
CPT/HCPCS: 36415; 59025; 59409; 82803; 85014; 85018; 85027; 86592; 86850; 86900; 86901; A9270-GY; J2001; J2590; U0002

== ENCOUNTER 2022-12-03 06:40 | Inpatient (IN) | payer BC ==
[2022-12-03] MEDS ORDERED: Lidocaine 1% 20 ML MDV ONE (07:05)
[2022-12-03] MEDS ORDERED: Tranexamic Acid 1,000 MG in Sodium Chloride 0.9% 100 ML IV PRN (07:08)
[2022-12-03] MEDS ORDERED: Misoprostol 200 MCG Tab PO PRN (07:08)
[2022-12-03] MEDS ORDERED: Methylergonovine 0.2 MG/1 ML Amp IM PRN (07:08)
[2022-12-03] MEDS ORDERED: Water For Irrigation,Sterile 1,000 ML Container IRR PRN (07:08)
[2022-12-03] MEDS ORDERED: Lidocaine 1% 50 ML MDV INJECT PRN (07:08)
[2022-12-03] MEDS ORDERED: Carboprost Tromethamine 250 MCG/1 mL Vial IM PRN (07:08)
[2022-12-03] MEDS ORDERED: Butorphanol 1 MG/ML SDV IVPUSH PRN (07:08)
[2022-12-03] MEDS ORDERED: Oxytocin 10 Units/1 ML SDV ONE (07:12)
[2022-12-03] MEDS ORDERED: Oxytocin/0.9 % Sodium Chloride 30 UNIT/500 ML BAG IV SCH (07:15)
[2022-12-03] MEDS ORDERED: Benzocaine/Menthol 20%-0.5% Spray 78 GM Cannister TOP PRN (07:39)
[2022-12-03] MEDS ORDERED: Ibuprofen 400 MG Tab PO PRN (07:39)
[2022-12-03] MEDS ORDERED: Docusate Sodium 100 MG Cap PO PRN (07:39)
[2022-12-03] MEDS ORDERED: Acetaminophen 500 MG Tab PO PRN ×2 (07:39)
[2022-12-03] MEDS ORDERED: oxyCODONE 5 MG Tab PO PRN (07:39)
[2022-12-03] MEDS ORDERED: Lanolin 100% Cream 7 GM Tube TOP PRN (07:39)
[2022-12-03] MEDS ORDERED: Witch Hazel Medicated Pads 40/Jar TOP PRN (07:39)
[2022-12-03] MEDS ORDERED: Bisacodyl 10 MG Supp RECTAL PRN (07:39)
[2022-12-03] MEDS ORDERED: Ibuprofen 800 MG Tab PO PRN (07:39)
[2022-12-03 07:45] LABS: PH,UMBILICAL ARTERIAL 7.25 (7.18-7.38); PH,UMBILICAL VENOUS 7.254 (7.25-7.45)
[2022-12-03 08:38] LABS: HEMATOCRIT 35.4 % (36.0-46.0); HEMOGLOBIN 11.7 g/dL (12.0-16.0); MEAN CORPUSCULAR HEMOGLOBIN 28.4 pg (27.0-32.0); MEAN CORPUSCULAR HGB CONC 33.1 g/dL (31.0-37.0); MEAN CORPUSCULAR VOLUME 85.9 fL (80.0-98.0); MEAN PLATELET VOLUME 10.7 fL (7.40-12.00); RED BLOOD CELL COUNT 4.12 M/uL (4.30-5.90); WHITE BLOOD CELL COUNT,WBC 13.04 K/uL (4.0-11.0)
[2022-12-04 06:09] LABS: HEMATOCRIT 30.8 % (36.0-46.0); HEMOGLOBIN 10.3 g/dL (12.0-16.0)
[2022-12-04 08:32] VITALS: BP 132/68; PULSE 67
== END 2022-12-04 12:05 | disposition home or self-care (01) | DRG 560 ==
LOC: MW.OBCHECK 06:40 → MW.OB 06:42 → MW.OBCHECK 06:43 → MW.OB 06:43 → OBSVTOIN 06:47 → MW.OB 10:18
PROVIDERS: ADMIT Obstetrics & Gynecology; ATTEND Obstetrics & Gynecology
PROC: 10E0XZZ Delivery of Products of Conception, External Approach (ICD-10-PCS; principal; 2022-12-03)
PROC: 0KQM0ZZ Repair Perineum Muscle, Open Approach (ICD-10-PCS; 2022-12-03)
PROC: 0UQMXZZ Repair Vulva, External Approach (ICD-10-PCS; 2022-12-03)
DX: O42.02 Full-term premature rupture of membranes, onset of labor within 24 hours of rupture (principal); O69.81X0 Labor and delivery complicated by cord around neck, without compression, not applicable or unspecified; O77.0 Labor and delivery complicated by meconium in amniotic fluid; O70.1 Second degree perineal laceration during delivery; O71.82 Other specified trauma to perineum and vulva; Z3A.39 39 weeks gestation of pregnancy; Z37.0 Single live birth
CPT/HCPCS: 36415; 82803; 85014; 85018; 85027; 86592; 86850; 86900; 86901; A9270-GY; J2210; J2590; J3490